=== PATIENT | female | born 1960 | race Caucasian/White ===

== ENCOUNTER 2016-12-06 19:30 | Observation (INO) | payer BC ==
[2016-12-06] MEDS ORDERED: NS 1,000 ML IV ONE ×2 (19:52→20:05)
[2016-12-06] MEDS ORDERED: ONDANSETRON 4 MG/2 ML VIAL IVP ONE (19:52)
[2016-12-06] MEDS ORDERED: HYDROmorphONE/DILAUDID 1 MG/ML SYR IVP ONE (19:52)
--- NOTE | 2016-12-06 19:52 | EDPHY ---
H & P Stated Complaint: abd pain vomiting bloody diarrhea Time Seen by Provider: 12/06/16 19:51 HPI/ROS: HPI CHIEF COMPLAINT: Abdominal pain, nausea, vomiting, diarrhea HISTORY OF PRESENT ILLNESS: This patient very pleasant 56-year-old female she is visiting from [facility] she arrived in [facility] on , she is not having daily medical problems she presents to the emergency room with abdominal pain diffuse worse in the lower abdomen nausea vomiting and diarrhea that initially was nonbloody but then started seeing bright blood per rectum with diarrhea. She tells me her initial stool was brown and soft. Watery. She states she was out hiking today with her family developed sudden- onset abdominal pain described as sharp stabbing pain in lower abdomen with cramps then developed diarrhea and multiple episodes of nonbilious nonbloody vomiting. States she had chills and sweats. Denies chest pain or shortness of breath. Denies urinary symptoms denies back pain. Tells me she vomited 8 times. Multiple episodes of watery diarrhea. No fever. No other sick contacts. Past Medical History: Kidney stone, endometriosis Past Surgical History: Pneumo GI doses surgery laparoscopic surgery, ureteral stone obstruction surgery Social History: Denies daily use of drugs alcohol tobacco products, lives in [facility] works as a massage therapist Family History: Noncontributory ROS REVIEW OF SYSTEMS: A comprehensive 10 point review of systems is otherwise negative aside from elements mentioned in the history of present illness. Exam Constitutional triage nursing summary reviewed, vital signs reviewed, awake/ alert. Eyes normal conjunctivae and sclera, EOMI, PERRLA. HENT normal inspection, atraumatic, moist mucus membranes, no epistaxis, neck supple/ no meningismus, no raccoon eyes. Respiratory clear to auscultation bilaterally, normal breath sounds, no respiratory distress, no wheezing. Cardiovascular rate normal, regular rhythm, no murmur, no edema, distal pulses normal. Gastrointestinal soft, mild tenderness diffusely , no rebound, no guarding, normal bowel sounds, no distension, no pulsatile mass. Genitourinary no CVA tenderness. Musculoskeletal no midline vertebral tenderness, full range of motion, no calf swelling, no tenderness of extremities, no meningismus, good pulses, neurovascularly intact. Skin pink, warm, & dry, no rash, skin atraumatic. Neurologic awake, alert and oriented x 3, AAOx3, moves all 4 extremities equally, motor intact, sensory intact, CN II-XII intact, normal cerebellar, normal vision, normal speech. Psychiatric normal mood/affect. Heme/Lymph/Immune no lymphadenopathy. Differential diagnosis includes but is not limited to and in no particular order : Bowel obstruction, appendicitis, gallbladder disease, diverticulitis, colitis , enteritis, perforated viscus, gastritis, GERD, esophagitis, urinary tract infection, pyelonephritis, kidney stones Medical Decision Making: Plan for this patient IV establishment, IV fluid bolus , IV Dilaudid for pain control IV Zofran for nausea. Blood work including abdominal labs, CT abdomen pelvis with IV contrast Re-evaluation: CT scan of the abdomen pelvis with IV contrast. The results of the study are diffuse colitis. The study was read by Dr. Shiva Vera I viewed the images myself on the PACS system. 2134: this patient's CT scans shows diffuse colitis. Patient be admitted to the hospital for diarrhea bloody stool diffuse colitis abdominal pain nausea vomiting. I have ordered her IV ciprofloxacin IV Flagyl. Stool study pending. IV hydration. She is agreeable for this plan. Spoke with the hospitalist service Dr. Vizcaino accepts. Source: Patient - Personal History LMP (Females 10-55): 1-7 Days Ago Current Tetanus/Diphtheria Vaccine: Unsure Current Tetanus Diphtheria and Acellular Pertussis (TDAP): Unsure - Medical/Surgical History Hx Asthma: No Hx Chronic Respiratory Disease: No Hx Diabetes: No Hx Cardiac Disease: No Hx Renal Disease: No Hx Cirrhosis: No Hx Alcoholism: No Hx HIV/AIDS: No Hx Splenectomy or Spleen Trauma: No Other PMH: kidney stone. laproscope. tonsils - Social History Smoking Status: Never smoked Constitutional: Initial Vital Signs Temperature (C) 36.8 C 12/06/16 19:39 Heart Rate 93 12/06/16 19:39 Respiratory Rate 19 12/06/16 19:39 Blood Pressure 136/96 H 12/06/16 19:39 O2 Sat (%) 95 12/06/16 19:39 O2 Delivery Mode Room Air Allergies/Adverse Reactions: acetaminophen [From Vicodin] Allergy (Verified 12/06/16 19:38) hydrocodone [From Vicodin] Allergy (Verified 12/06/16 19:38) Sulfa (Sulfonamide Antibiotics) Allergy (Verified 12/06/16 19:38) Home Medications: Medication Instructions Recorded NK [No Known Home Meds] 12/06/16 Medical Decision Making - Diagnostics Imaging Results: Imaging Impressions Abdomen CT 12/06/16 20:05 Impression: 1. Diffuse thickening of the distal transverse colon through the mid descending colon, consistent with colitis. 2. Additional findings, as above. Findings discussed with Isauro Hardin M.D., on December 06, 2016 at 2113 hours. - Data Points Laboratory Results: Laboratory Results 12/06/16 19:55 12/06/16 19:55 12/06/16 12/06/16 12/06/16 20:20 20:20 19:55 WBC RBC Hgb Hct MCV MCH MCHC RDW Plt Count MPV Neut % (Auto) Lymph % (Auto) [place] % (Auto) Eos % (Auto) Baso % (Auto) Nucleat RBC Rel Count Absolute Neuts (auto) Absolute Lymphs (auto) Absolute Monos (auto) Absolute Eos (auto) Absolute Basos (auto) Absolute Nucleated RBC Immature Gran % Immature Gran # PT INR APTT VBG Lactic Acid Sodium 135 mEq/L mEq/L (134-144) Potassium 4.1 mEq/L mEq/L (3.5-5.2) Chloride 101 mEq/L mEq/L (97-110) Carbon Dioxide 22 mEq/l mEq/l (22-31) Anion Gap 12 mEq/L mEq/L (8-16) BUN 16 mg/dL mg/dL (7-23) Creatinine 0.8 mg/dL mg/dL (0.6-1.0) Estimated GFR > 60 Glucose 124 mg/dL H mg/dL (70-100) Calcium 9.6 mg/dL mg/dL (8.5-10.4) Total Bilirubin 0.8 mg/dL mg/dL (0.1-1.4) Conjugated Bilirubin 0.3 mg/dL mg/dL (0.0-0.5) Unconjugated Bilirubin 0.5 mg/dL mg/dL (0.0-1.1) AST 37 IU/L IU/L (14-46) ALT 33 IU/L IU/L (9-52) Alkaline Phosphatase 58 IU/L IU/L (38-126) Total Protein 8.0 g/dL g/dL (6.3-8.2) Albumin 4.8 g/dL g/dL (3.5-5.0) Lipase 118.0 IU/L IU/L (23-300) Urine Color CHUY Urine Appearance HAZY Urine pH 5.0 (5.0-7.5) Ur Specific [place] 1.023 (1.002-1.030) Urine Protein NEGATIVE (NEGATIVE) Urine Ketones 1+ H (NEGATIVE) Urine Blood 1+ H (NEGATIVE) Urine Nitrate NEGATIVE (NEGATIVE) Urine Bilirubin NEGATIVE (NEGATIVE) Urine Urobilinogen NEGATIVE EU EU (0.2-1.0) Ur Leukocyte Esterase NEGATIVE (NEGATIVE) Urine RBC 5-10 /hpf H /hpf (0-3) Urine WBC 1-3 /hpf /hpf (0-3) Ur Epithelial Cells TRACE /lpf /lpf (NONE-1+) Urine Bacteria NONE SEEN /hpf /hpf (NONE SEEN) Urine Mucus TRACE /lpf /lpf (NONE-1+) Urine Glucose NEGATIVE (NEGATIVE) Stool Occult Bld Scrn POSITIVE H (NEGATIVE) 12/06/16 12/06/16 12/06/16 19:55 19:55 19:55 WBC 11.82 10^3/uL H 10^3/uL (3.80-9.50) RBC 4.70 10^6/uL 10^6/uL (4.18-5.33) Hgb 14.0 g/dL g/dL (12.6-16.3) Hct 41.3 % % (38.0-47.0) MCV 87.9 fL fL (81.5-99.8) MCH 29.8 pg pg (27.9-34.1) MCHC 33.9 g/dL g/dL (32.4-36.7) RDW 13.1 % % (11.5-15.2) Plt Count 228 10^3/uL 10^3/uL (150-400) MPV 10.9 fL fL (8.7-11.7) Neut % (Auto) 84.5 % H % (39.3-74.2) Lymph % (Auto) 10.5 % L % (15.0-45.0) King % (Auto) 4.2 % L % (4.5-13.0) Eos % (Auto) 0.1 % L % (0.6-7.6) Baso % (Auto) 0.3 % % (0.3-1.7) Nucleat RBC Rel Count 0.0 % % (0.0-0.2) Absolute Neuts (auto) 9.99 10^3/uL H 10^3/uL (1.70-6.50) Absolute Lymphs (auto) 1.24 10^3/uL 10^3/uL (1.00-3.00) Absolute Monos (auto) 0.50 10^3/uL 10^3/uL (0.30-0.80) Absolute Eos (auto) 0.01 10^3/uL L 10^3/uL (0.03-0.40) Absolute Basos (auto) 0.03 10^3/uL 10^3/uL (0.02-0.10) Absolute Nucleated RBC 0.00 10^3/uL 10^3/uL (0-0.01) Immature Gran % 0.4 % % (0.0-1.1) Immature Gran # 0.05 10^3/uL 10^3/uL (0.00-0.10) PT 14.0 SEC SEC (12.0-15.0) INR 1.09 (0.83-1.16) APTT 24.2 SEC SEC (23.0-38.0) VBG Lactic Acid 1.6 mmol/L mmol/L (0.7-2.1) Sodium Potassium Chloride Carbon Dioxide Anion Gap BUN Creatinine Estimated GFR Glucose Calcium Total Bilirubin Conjugated Bilirubin Unconjugated Bilirubin AST ALT Alkaline Phosphatase Total Protein Albumin Lipase Urine Color Urine Appearance Urine pH Ur Specific [place] Urine Protein Urine Ketones Urine Blood Urine Nitrate Urine Bilirubin Urine Urobilinogen Ur Leukocyte Esterase Urine RBC Urine WBC Ur Epithelial Cells Urine Bacteria Urine Mucus Urine Glucose Stool Occult Bld Scrn Medications Given: Discontinued Medications Hydromorphone HCl (Dilaudid) 0.5 mg IVP EDNOW ONE Stop: 12/06/16 19:53 Last Admin: 12/06/16 20:30 Dose: 0.5 mg Sodium Chloride (Ns) 1,000 mls @ 0 mls/hr IV ONCE ONE PRN Reason: Wide Open Stop: 12/06/16 19:53 Last Admin: 12/06/16 20:30 Dose: 1,000 mls Sodium Chloride (Ns) 1,000 mls @ 0 mls/hr IV ONCE ONE PRN Reason: Wide Open Stop: 12/06/16 20:06 Last Admin: 12/06/16 21:36 Dose: 1,000 mls Ondansetron HCl (Zofran) 4 mg IVP EDNOW ONE Stop: 12/06/16 19:53 Last Admin: 12/06/16 20:30 Dose: 4 mg Departure - Departure Disposition: [facility] Inpatient Acute Clinical Impression: Colitis Abdominal pain Qualifiers: Abdominal location: unspecified location Qualified Code(s): R10.9 - Unspecified abdominal pain Condition: Fair Referrals: YESSICA HASSAN MD [Other] - As per Instructions
[2016-12-06 20:10] LABS: % IMMATURE GRANULYOCYTES 0.4 % (0.0-1.1); ABSOLUTE IMMATURE GRANULOCYTES 0.05 10^3/uL (0.00-0.10); ADD DIFF? NO; ADD MORPH? NO; ADD SCAN? NO; ATYPICAL LYMPHOCYTE FLAG 0 (0-99); FRAGMENT RBC FLAG 0 (0-99); HEMATOCRIT 41.3 % (38.0-47.0); LEFT SHIFT FLG 0 (0-99); LIPEMIA HEMOLYSIS FLAG 90 (0-99); MEAN CELL HEMOGLOBIN 29.8 pg (27.9-34.1); MEAN CELL HEMOGLOBIN CONCENTR. 33.9 g/dL (32.4-36.7); MEAN CELL VOLUME 87.9 fL (81.5-99.8); MEAN PLATELET VOLUME 10.9 fL (8.7-11.7); PLATELET CLUMPS FLAG 0 (0-99); PLATELET COUNT 228 10^3/uL (150-400); RED CELL DISTRIBUTION WIDTH 13.1 % (11.5-15.2)
[2016-12-06] MEDS ORDERED: IOPAMIDOL (ISOVUE-300) 100 ML BTL IV ONE (20:13)
[2016-12-06 20:19] LABS: APTT 24.2 SEC (23.0-38.0); INR 1.09 (0.83-1.16)
[2016-12-06 20:27] LABS: ALANINE AMINOTRANSFERASE 33 IU/L (9-52); ALBUMIN 4.8 g/dL (3.5-5.0); ALKALINE PHOSPHATASE 58 IU/L (38-126); ANION GAP 12 mEq/L (8-16); ASPARTATE AMINOTRANSFERASE 37 IU/L (14-46); BILIRUBIN,TOTAL 0.8 mg/dL (0.1-1.4); BILIRUBIN-CONJUGATED 0.3 mg/dL (0.0-0.5); BILIRUBIN-UNCONJUGATED 0.5 mg/dL (0.0-1.1); CALCIUM 9.6 mg/dL (8.5-10.4); CARBON DIOXIDE 22 mEq/l (22-31); CHLORIDE 101 mEq/L (97-110); CREATININE 0.8 mg/dL (0.6-1.0); GLOMERULAR FILTRATION RATE > 60; GLUCOSE 124 mg/dL (70-100); POTASSIUM 4.1 mEq/L (3.5-5.2); SODIUM 135 mEq/L (134-144)
[2016-12-06 20:46] LABS: COLOR AMBER; LEUKOCYTE ESTERASE,URINE NEGATIVE (NEGATIVE); NITRITE,URINE NEGATIVE (NEGATIVE)
[2016-12-06 20:49] LABS: MUCUS TRACE /lpf (NONE-1+)
[2016-12-06 20:50] LABS: BACTERIA NONE SEEN /hpf (NONE SEEN)
[2016-12-06] MEDS ORDERED: CIPROFLOXACIN 400 MG/DEXTROSE 200 ML IV ONE (21:26)
[2016-12-06] MEDS ORDERED: HYDROmorphONE/DILAUDID 2 MG/ML INJ IVP PRN (22:28)
[2016-12-06] MEDS ORDERED: D5W 1/2 NS W/ 20 KCl/L 1,000 ML IV SCH (22:30)
--- NOTE | 2016-12-06 22:32 | PDGENHP ---
History and Physical - Chief Complaint Abdominal pain, diarrhea, nausea/vomiting - History of Present Illness 56 y/o female presenting to the ED with diffuse abdominal pain, diarrhea, and vomiting that began while she was hiking this morning at approximately 10:30 am. She has been in good health prior to this and has been in [place] since visiting from [place]. She states that there was a sudden onset of diffuse abdominal pain which seemed to be more intense on the lower left quadrant. She rates it as 10/10 but is now 8/10, sharp, and worse with movement , better with laying still. She states that she had approximately 10 bouts of diarrhea first appeared loose and brown large in volume and later became scant and bloody. She had approximately 6 episodes of vomiting but did not note any blood. She states she had associated subjective fevers, nausea, chills, sweats. She denies any sick contacts. History Information - Allergies/Home Medication List Allergies/Adverse Reactions: acetaminophen [From Vicodin] Allergy (Verified 12/06/16 19:38) hydrocodone [From Vicodin] Allergy (Verified 12/06/16 19:38) Sulfa (Sulfonamide Antibiotics) Allergy (Verified 12/06/16 19:38) Home Medications: NK [No Known Home Meds] 12/06/16 [Last Taken Unknown] I have personally reviewed and updated: family history, medical history, social history, surgical history Past Medical History: kidney stones. endometriosis. Esophagitis - Surgical History Additional surgical history: laparoscopic surgery for endometriosis, ureteral stone surgery, bladder suspension - Social History Smoking Status: Never smoked Alcohol Use: Occasionally Drug Use: None Review of Systems ROS: 10pt was reviewed & negative except for what was stated in HPI & below Physical Exam Temp Pulse Resp BP Pulse Ox 36.8 C 70 16 102/79 94 12/06/16 19:39 12/06/16 21:05 12/06/16 21:05 12/06/16 21:05 12/06/16 21:05 Constitutional: no apparent distress, appears nourished, not in pain Eyes: PERRL, anicteric sclera, EOMI Ears, Nose, Mouth, Throat: moist mucous membranes, hearing normal, ears appear normal, no oral mucosal ulcers Cardiovascular: regular rate and rhythym, no murmur, rub, or gallop, No edema Respiratory: no respiratory distress, no rales or rhonchi, clear to auscultation Gastrointestinal: normoactive bowel sounds, soft, non-tender abdomen, no palpable masses, tenderness (diffuse), No guarding, No rebound Genitourinary: no bladder fullness, no bladder tenderness Skin: warm, normal color, no rashes or abrasions, no fluctuance, no induration, No mottled Musculoskeletal: full muscle strength, no muscle tenderness, normal joint ROM, no joint effusions Neurologic: AAOx3, CN II-XII Intact, No facial droop Psychiatric: interacting appropriately, not anxious, not encephalopathic, thought process linear Lab Data & Imaging Review 12/06/16 19:55 12/06/16 19:55 WBC 11.82 10^3/uL (3.80-9.50) H 12/06/16 19:55 RBC 4.70 10^6/uL (4.18-5.33) 12/06/16 19:55 Hgb 14.0 g/dL (12.6-16.3) 12/06/16 19:55 Hct 41.3 % (38.0-47.0) 12/06/16 19:55 MCV 87.9 fL (81.5-99.8) 12/06/16 19:55 MCH 29.8 pg (27.9-34.1) 12/06/16 19:55 MCHC 33.9 g/dL (32.4-36.7) 12/06/16 19:55 RDW 13.1 % (11.5-15.2) 12/06/16 19:55 Plt Count 228 10^3/uL (150-400) 12/06/16 19:55 MPV 10.9 fL (8.7-11.7) 12/06/16 19:55 Neut % (Auto) 84.5 % (39.3-74.2) H 12/06/16 19:55 Lymph % (Auto) 10.5 % (15.0-45.0) L 12/06/16 19:55 [place] % (Auto) 4.2 % (4.5-13.0) L 12/06/16 19:55 Eos % (Auto) 0.1 % (0.6-7.6) L 12/06/16 19:55 Baso % (Auto) 0.3 % (0.3-1.7) 12/06/16 19:55 Nucleat RBC Rel Count 0.0 % (0.0-0.2) 12/06/16 19:55 Absolute Neuts (auto) 9.99 10^3/uL (1.70-6.50) H 12/06/16 19:55 Absolute Lymphs (auto) 1.24 10^3/uL (1.00-3.00) 12/06/16 19:55 Absolute Monos (auto) 0.50 10^3/uL (0.30-0.80) 12/06/16 19:55 Absolute Eos (auto) 0.01 10^3/uL (0.03-0.40) L 12/06/16 19:55 Absolute Basos (auto) 0.03 10^3/uL (0.02-0.10) 12/06/16 19:55 Absolute Nucleated RBC 0.00 10^3/uL (0-0.01) 12/06/16 19:55 Immature Gran % 0.4 % (0.0-1.1) 12/06/16 19:55 Immature Gran # 0.05 10^3/uL (0.00-0.10) 12/06/16 19:55 PT 14.0 SEC (12.0-15.0) 12/06/16 19:55 INR 1.09 (0.83-1.16) 12/06/16 19:55 APTT 24.2 SEC (23.0-38.0) 12/06/16 19:55 VBG Lactic Acid 1.6 mmol/L (0.7-2.1) 12/06/16 19:55 Sodium 135 mEq/L (134-144) 12/06/16 19:55 Potassium 4.1 mEq/L (3.5-5.2) 12/06/16 19:55 Chloride 101 mEq/L (97-110) 12/06/16 19:55 Carbon Dioxide 22 mEq/l (22-31) 12/06/16 19:55 Anion Gap 12 mEq/L (8-16) 12/06/16 19:55 BUN 16 mg/dL (7-23) 12/06/16 19:55 Creatinine 0.8 mg/dL (0.6-1.0) 12/06/16 19:55 Estimated GFR > 60 12/06/16 19:55 Glucose 124 mg/dL (70-100) H 12/06/16 19:55 Calcium 9.6 mg/dL (8.5-10.4) 12/06/16 19:55 Total Bilirubin 0.8 mg/dL (0.1-1.4) 12/06/16 19:55 Conjugated Bilirubin 0.3 mg/dL (0.0-0.5) 12/06/16 19:55 Unconjugated Bilirubin 0.5 mg/dL (0.0-1.1) 12/06/16 19:55 AST 37 IU/L (14-46) 12/06/16 19:55 ALT 33 IU/L (9-52) 12/06/16 19:55 Alkaline Phosphatase 58 IU/L (38-126) 12/06/16 19:55 Total Protein 8.0 g/dL (6.3-8.2) 12/06/16 19:55 Albumin 4.8 g/dL (3.5-5.0) 12/06/16 19:55 Lipase 118.0 IU/L (23-300) 12/06/16 19:55 Urine Color CHUY 12/06/16 20:20 Urine Appearance HAZY 12/06/16 20:20 Urine pH 5.0 (5.0-7.5) 12/06/16 20:20 Ur Specific [place] 1.023 (1.002-1.030) 12/06/16 20:20 Urine Protein NEGATIVE (NEGATIVE) 12/06/16 20:20 Urine Ketones 1+ (NEGATIVE) H 12/06/16 20:20 Urine Blood 1+ (NEGATIVE) H 12/06/16 20:20 Urine Nitrate NEGATIVE (NEGATIVE) 12/06/16 20:20 Urine Bilirubin NEGATIVE (NEGATIVE) 12/06/16 20:20 Urine Urobilinogen NEGATIVE EU (0.2-1.0) 12/06/16 20:20 Ur Leukocyte Esterase NEGATIVE (NEGATIVE) 12/06/16 20:20 Urine RBC 5-10 /hpf (0-3) H 12/06/16 20:20 Urine WBC 1-3 /hpf (0-3) 12/06/16 20:20 Ur Epithelial Cells TRACE /lpf (NONE-1+) 12/06/16 20:20 Urine Bacteria NONE SEEN /hpf (NONE SEEN) 12/06/16 20:20 Urine Mucus TRACE /lpf (NONE-1+) 12/06/16 20:20 Urine Glucose NEGATIVE (NEGATIVE) 12/06/16 20:20 Stool Occult Bld Scrn POSITIVE (NEGATIVE) H 12/06/16 20:20 Imaging Review: CT of the abdomen and pelvis: 1. Diffuse thickening of the distal transverse colon through the mid descending colon, consistent with colitis. Visualized and Interpreted Chest x-ray results: Yes Assessment & Plan Assessment: 56 y/o female visiting from [place] presenting with: # abdominal pain, bloody diarrhea, and vomiting in the setting of colitis seen on CT in the distal transverse colon through the mid descending colon -suspect acute bacterial gastroenteritis plan: - continue oral hydration - monitor electrolyte - stool PCR pending - Empiric antibiotics were started in the emergency department which I will not continue at this time until her stool studies are back. Antibiotics are contraindicated in the setting of possible EHEC # hematuria - patient has history of kidney stones, however she is not experiencing flank pain or signs of UTI - recommend out patient follow up
[2016-12-06] MEDS: ONDANSETRON 4 MG/2 ML VIAL IVP PRN (23:44)
[2016-12-07 05:03] LABS: % IMMATURE GRANULYOCYTES 0.3 % (0.0-1.1); ABSOLUTE IMMATURE GRANULOCYTES 0.03 10^3/uL (0.00-0.10); ADD DIFF? NO; ADD MORPH? NO; ADD SCAN? NO; ATYPICAL LYMPHOCYTE FLAG 0 (0-99); FRAGMENT RBC FLAG 0 (0-99); HEMATOCRIT 33.7 % (38.0-47.0); HEMOGLOBIN 11.3 g/dL (12.6-16.3); LEFT SHIFT FLG 0 (0-99); LIPEMIA HEMOLYSIS FLAG 80 (0-99); MEAN CELL HEMOGLOBIN 30.1 pg (27.9-34.1); MEAN CELL HEMOGLOBIN CONCENTR. 33.5 g/dL (32.4-36.7); MEAN CELL VOLUME 89.9 fL (81.5-99.8); MEAN PLATELET VOLUME 11.4 fL (8.7-11.7); PLATELET CLUMPS FLAG 0 (0-99); PLATELET COUNT 170 10^3/uL (150-400); RED BLOOD CELL COUNT 3.75 10^6/uL (4.18-5.33); RED CELL DISTRIBUTION WIDTH 13.3 % (11.5-15.2)
[2016-12-07] MEDS: ONDANSETRON 4 MG/2 ML VIAL IVP PRN (05:12)
[2016-12-07 06:25] LABS: ANION GAP 4 mEq/L (8-16); CALCIUM 7.8 mg/dL (8.5-10.4); CARBON DIOXIDE 21 mEq/l (22-31); CHLORIDE 110 mEq/L (97-110); CREATININE 0.8 mg/dL (0.6-1.0); GLOMERULAR FILTRATION RATE > 60; GLUCOSE 115 mg/dL (70-100); POTASSIUM 4.2 mEq/L (3.5-5.2); SODIUM 135 mEq/L (134-144)
[2016-12-07 07:26] VITALS: RESP 18
--- NOTE | 2016-12-07 08:52 | HOSPPROG ---
Hospitalist Progress Note Assessment/Plan: Patient is a 56 y/o female who is visiting from the [facility] who developed acute abdominal pain. Today is my first encounter with the patient, chart reviewed. *Abdominal pain with bloody diarrhea/ + nausea and vomiting CT of abd/pelvis shows diffuse thickening thru the mid descending colon, consistent w colitis suspect gastroenteritis stool PCR is negative oral hydration + iv hydration *bradycardia patient is very active/athletic *hematuria hx of kidney stones further f/u with PCP *hypotension asymptomatic *Plan: will monitor through the morning/if can eat and drink well; dc later this afternoon Subjective: Radha is starting to feel better this morning.no further diarrhea/ no futher nausea. Objective: Vital Signs Temp Pulse Resp BP Pulse Ox 36.6 C 46 L 18 94/57 L 96 12/07/16 07:25 12/07/16 07:25 12/07/16 07:25 12/07/16 07:25 12/07/16 07:25 Laboratory Results 12/07/16 04:16 12/07/16 04:16 12/06/16 12/07/16 12/08/16 05:59 05:59 05:59 Intake Total 2150 Balance 2150 PT 14.0 SEC (12.0-15.0) 12/06/16 19:55 INR 1.09 (0.83-1.16) 12/06/16 19:55 - Physical Exam Constitutional: no apparent distress, appears nourished, not in pain Eyes: PERRL Ears, Nose, Mouth, Throat: hearing normal Cardiovascular: regular rate and rhythym, bradycardia Respiratory: no respiratory distress Gastrointestinal: normoactive bowel sounds, other (slightly bloated) Skin: warm, normal color Musculoskeletal: full muscle strength Psychiatric: interacting appropriately, not anxious ICD10 Worksheet Patient Problems: Problems Problem Status Onset Abdominal pain Acute Colitis Acute
[2016-12-07 12:05] VITALS: BP 117/69; PULSE 55; TEMP 98.2; O2SAT 98
--- NOTE | 2016-12-07 14:14 | GDS ---
[f rep st] DISCHARGE SUMMARY DISCHARGE DIAGNOSES: 1. Abdominal pain with nausea, vomiting, and bloody diarrhea/likely viral gastritis. 2. Bradycardia. 3. Hematuria. 4. Hypotension. HISTORY OF PRESENT ILLNESS: Briefly, the patient is a 56-year-old female who presented to the emerg ency room with diffuse abdominal pain, diarrhea, and vomiting that began while she was hiking [place] in the day. She has been in good health and has been in [place] since , visiting from [facility]. She had sudden onset of diffuse abdominal pain, which appeared to be more in the l eft lower quadrant. She has had episodes like this before, but this one was more painful. She was admitted for further care. On admission, she had a CT of the abdomen and pelvis, which showed diffu se thickening of the distal transverse colon to the mid descending colon, consistent with colitis. HOSPITAL COURSE BY PROBLEM: 1. Abdominal pain with bloody diarrhea, nausea and vomiting. I suspect she has acute gastroenterit is. She was treated with oral hydration. She had a GI tract panel that was performed, which showed no organism detected. She is feeling markedly better. This afternoon she is eating and drinking w ell, having a little bit of spasms, and will get a prescription for a few doses of Bentyl if needed. 2. Bradycardia. She is very athletic, asymptomatic. 3. Hematuria. She has a history of kidney stones. Recommend she get a repeat UA. 4. Hypotension, asymptomatic. PENDING LABORATORIES AND TESTS: None. CONDITION AT DISCHARGE: Stable. Blood pressure is 117/69, heart rate is 55, respiratory rate is 18 , O2 sats on room air are 98%, temperature is 36.8 Celsius. MEDICATIONS AT DISCHARGE: Please see the EMR. DISCHARGE INSTRUCTIONS: 1. I recommend that she take a copy of her CT scan with her. She has had this happen multiple time s in the past. 2. If she develops worsening abdominal pain, more bloody diarrhea, fever, or chills, return to the ER. 3. Recommend she get further evaluation by territory development manager. 4. Get a repeat urinalysis and further evaluation of hematuria. /[id number]/MODL
== END 2016-12-07 14:10 | disposition home or self-care (01) ==
LOC: INTOOBSV 21:42 → F3E 22:30
PROVIDERS: ADMIT Internal Medicine; ATTEND Internal Medicine
DX: R10.9 Unspecified abdominal pain (principal); K92.1 Melena; R00.1 Bradycardia, unspecified; R11.2 Nausea with vomiting, unspecified; R31.9 Hematuria, unspecified; I95.9 Hypotension, unspecified
CPT/HCPCS: 74177; G0378; 96365; J0744; J1170; J2405; Q9967